=== PATIENT | female | born 1995 | race Caucasian/White ===

== ENCOUNTER 2024-01-04 10:44 | Emergency (ER) | payer MEDICAID ==
[~2024-01-04] VITALS: Ht 160 cm; Wt 80.0 kg
[2024-01-04 10:50] VITALS: O2SAT 99
[2024-01-04 10:51] VITALS: BP 123/81; PULSE 62; RESP 18; TEMP 98.2; O2SAT 99
[2024-01-04 11:53] LABS: BASOPHILS % 0.9 % (0.0-2.0); HEMATOCRIT. 41.6 % (36.0-48.0); HEMOGLOBIN. 13.5 g/dL (12.0-16.0); LYMPHOCYTES % 25.6 % (20.0-50.0); MEAN CORPUSCULAR HEMOGLOBIN 27.7 pg (28.0-32.0); MEAN CORPUSCULAR HGB CONC 32.6 g/dL (31.0-37.0); MONOCYTES % 7.6 % (2.0-8.0); NEUTROPHILS % 62.9 % (40.0-76.0); PLATELET 390 x1000/uL (130-400); RED BLOOD CELL COUNT 4.89 mill/uL (4.2-5.4); RED CELL DISTRIBUTION WIDTH 15.3 % (11.6-14.6); WHITE BLOOD COUNT 10.2 x1000/uL (4.5-11.0)
[2024-01-04 12:19] LABS: CHLORIDE 107 mEq/L (98-107); POTASSIUM 3.6 mEq/L (3.5-5.1); SODIUM 141 mEq/L (136-145)
[2024-01-04 12:20] LABS: CALCIUM 8.7 mg/dL (8.7-10.4); CARBON DIOXIDE 28 mEq/L (21-32)
[2024-01-04 12:25] LABS: CREATININE 0.7 mg/dL (0.6-1.0); GLUCOSE 106 mg/dL (70-105); TROPONIN I HIGH SENSITIVITY 12 ng/L (3.0-34); UREA NITROGEN BLOOD 8 mg/dL (9-23)
[2024-01-04 12:27] LABS: ALANINE AMINOTRANSFERASE 10 IU/L (10-49); ALBUMIN 4.2 g/dL (3.2-4.8); ASPARTATE AMINOTRANSFERASE 13 IU/L (<34); BILIRUBIN TOTAL 0.3 mg/dL (0.1-1.0); PROTEIN TOTAL 6.6 g/dL (6.0-8.3)
[2024-01-04 12:40] LABS: BILIRUBIN DIRECT < 0.1 mg/dL (<=3.0); ETHANOL BLOOD < 10 mg/dL (<10)
[2024-01-04 12:42] LABS: CLARITY URINE CLOUDY (CLEAR); COLOR URINE YELLOW (YELLOW); GLUCOSE URINE NEGATIVE (NEGATIVE); KETONES URINE TRACE (NEGATIVE); LEUKOCYTE ESTERASE URINE 2+ (NEGATIVE); NITRITE URINE NEGATIVE (NEGATIVE); OCCULT BLOOD URINE NEGATIVE (NEGATIVE); PROTEIN URINE TRACE (NEGATIVE); SPECIFIC GRAVITY URINE 1.022 (1.005-1.030)
[2024-01-04 12:47] LABS: HCG SCREEN NEGATIVE
[2024-01-04 13:00] LABS: BACTERIA URINE 1+; RBC URINE 0-2 /hpf (0-2); SQUAMOUS EPITHELIAL CELL URINE 1+ /lpf (RARE/1+); YEAST URINE NONE SEEN
[2024-01-04 13:03] LABS: *AMPHETAMINES SCREEN URINE NEGATIVE (NEGATIVE); *BARBITURATES SCREEN URINE NEGATIVE (NEGATIVE); *BENZODIAZEPINES SCREEN URINE NEGATIVE (NEGATIVE); *COCAINE SCREEN URINE NEGATIVE (NEGATIVE); METHADONE URINE SCREEN NEGATIVE (NEGATIVE); OPIATES URINE SCREEN NEGATIVE (NEGATIVE)
[2024-01-04 13:04] LABS: CANNABINOID URINE SCREEN PRESUMPTIVE POSITIVE (NEGATIVE); ECSTASY MDMA SCREEN URINE NEGATIVE (NEGATIVE); PHENCYCLIDINE URINE SCREEN NEGATIVE (NEGATIVE)
[2024-01-04] MEDS ORDERED: SULF1TAB48 MT (14:19)
[2024-01-04 14:45] LABS: TROPONIN I HIGH SENSITIVITY 17 ng/L (3.0-34)
== END 2024-01-04 15:01 | disposition left against medical advice (07) ==
LOC: ER 10:44
DX: R55 Syncope and collapse (principal)
CPT/HCPCS: 36415; 71045; 80048; 80076; 80305; 80320; 81003; 84484; 84703; 85025; 93005; 99285; G0480

== ENCOUNTER 2024-01-12 07:26 | Emergency (ER) | payer MEDICAID ==
[~2024-01-12] VITALS: Ht 160 cm; Wt 81.6 kg
[~2024-01-12 07:26] MED LIST: SULF1TAB48 MT
[2024-01-12 07:32] VITALS: BP 108/64; O2SAT 96
[2024-01-12 08:03] LABS: BASOPHILS % 0.8 % (0.0-2.0); EOSINOPHILS % 2.3 % (0.0-5.0); HEMATOCRIT. 39.4 % (36.0-48.0); HEMOGLOBIN. 13.3 g/dL (12.0-16.0); LYMPHOCYTES % 20.2 % (20.0-50.0); MEAN CORPUSCULAR HEMOGLOBIN 28.8 pg (28.0-32.0); MEAN CORPUSCULAR HGB CONC 33.8 g/dL (31.0-37.0); MEAN CORPUSCULAR VOLUME 85.4 fL (81.0-99.0); MEAN PLATELET VOLUME 6.9 fl (7.4-10.4); MONOCYTES % 6.7 % (2.0-8.0); PLATELET 401 x1000/uL (130-400); RED BLOOD CELL COUNT 4.61 mill/uL (4.2-5.4); RED CELL DISTRIBUTION WIDTH 14.8 % (11.6-14.6); WHITE BLOOD COUNT 10.6 x1000/uL (4.5-11.0)
[2024-01-12 08:05] LABS: CHLORIDE 106 mEq/L (98-107); POTASSIUM 3.6 mEq/L (3.5-5.1); SODIUM 138 mEq/L (136-145)
[2024-01-12 08:06] LABS: CARBON DIOXIDE 25 mEq/L (21-32)
[2024-01-12 08:11] LABS: CREATININE 0.8 mg/dL (0.6-1.0); GLUCOSE 110 mg/dL (70-105)
[2024-01-12 08:12] LABS: UREA NITROGEN BLOOD 7 mg/dL (9-23)
[2024-01-12 10:44] LABS: TROPONIN I HIGH SENSITIVITY < 4 ng/L (3.0-34)
[2024-01-12 12:13] LABS: TROPONIN I HIGH SENSITIVITY < 4 ng/L (3.0-34)
[2024-01-12 13:00] VITALS: PULSE 85; RESP 16; TEMP 36.72516; O2SAT 96
== END 2024-01-12 13:29 | disposition home or self-care (01) ==
LOC: ER 07:26 → EDBEDREQ 09:39 → CANBEDREQ 13:29 → ER 13:29
DX: R07.9 Chest pain, unspecified (principal)
CPT/HCPCS: 36415; 71045; 80048; 84484; 85025; 93005; 99285

== ENCOUNTER 2024-02-12 13:32 | Emergency (ER) | payer MEDICAID ==
[~2024-02-12] VITALS: Ht 162.6 cm; Wt 85.0 kg
[2024-02-12 13:40] VITALS: O2SAT 97
[2024-02-12 13:52] VITALS: BP 111/75; PULSE 98; RESP 18; TEMP 98.1; O2SAT 97
== END 2024-02-12 15:59 | disposition left against medical advice (07) ==
LOC: ER 13:32
DX: R19.7 Diarrhea, unspecified (principal); Z53.21 Procedure and treatment not carried out due to patient leaving prior to being seen by health care provider

== ENCOUNTER 2024-09-19 03:22 | Emergency (ER) | payer MEDICAID, OTHER ==
[~2024-09-19] VITALS: Ht 162.6 cm; Wt 82.0 kg
[2024-09-19 03:45] VITALS: O2SAT 99
[2024-09-19 03:49] VITALS: BP 102/62; TEMP 36.9; O2SAT 99
[2024-09-19 06:11] VITALS: PULSE 72; RESP 18
[2024-09-19] MEDS: IBUPROFEN 600MG TABLET PO ONE (06:19)
[2024-09-19] MEDS ORDERED: IBUP-2029 MT (07:08)
== END 2024-09-19 07:21 | disposition home or self-care (01) ==
LOC: ER 05:04
DX: S20.212A Contusion of left front wall of thorax, initial encounter (principal); V87.8XXA Person injured in other specified noncollision transport accidents involving motor vehicle (traffic), initial encounter; Y93.55 Activity, bike riding; Y92.89 Other specified places as the place of occurrence of the external cause; Y99.8 Other external cause status
CPT/HCPCS: 71045; 81025; 99283